=== PATIENT | male | born 1955 | race Caucasian/White ===

== ENCOUNTER 2017-12-16 20:32 | Inpatient (IN) | payer SELFPAY ==
[~2017-12-16] VITALS: Ht 167.6 cm; Wt 77.3 kg
[2017-12-16 21:15] LABS: APPEARANCE CLEAR (CLEAR); BILIRUBIN NEGATIVE (NEGATIVE); COLOR DK YELLOW (YELLOW); GLUCOSE NEGATIVE (NEGATIVE); KETONE NEGATIVE (NEGATIVE); NITRITE NEGATIVE (NEGATIVE); PROTEIN NEGATIVE (NEGATIVE); SPECIFIC GRAVITY 1.025 (1.005-1.020); UROBILINOGEN NORMAL (NORMAL)
[2017-12-16 22:06] LABS: BASOPHILS 0.5 % (0-2); EOSINOPHILS 1.1 % (0-7); HEMATOCRIT 32.5 % (42.0-54.0); HEMOGLOBIN 10.7 g/dL (13.5-17.5); IMMATURE GRANULOCYTES 0.2 % (0-5); MCH 27.9 pg (26.0-34.0); MCHC 32.9 g/dL (31.0-37.0); MCV 84.9 fL (80.0-100.0); MEAN PLATELET VOLUME 9.2 fL (7.4-10.4); MONOCYTES 11.7 % (2-11); NEUTROPHILS 49.5 % (40-80); PLATELET COUNT 326 10x3/uL (130-400); RBC 3.83 10x6/uL (4.20-6.10); RDW 19.6 % (11.5-14.5); WBC 13.3 10x3/uL (4.8-10.8)
[2017-12-16 22:21] LABS: ALBUMIN 2.8 g/dL (3.4-5.0); ALKALINE PHOSPHATASE 100 U/L (46-116); ALT (SGPT) 27 U/L (10-68); BILIRUBIN - TOTAL 1.21 mg/dL (0.2-1.3); CALC OSMOLALITY 280 mosm/kg (275-300); CALCIUM 9.6 mg/dL (8.5-10.1); CARBON DIOXIDE 27.2 mmol/L (21.0-32.0); CHLORIDE - SERUM 106 mmol/L (98-107); CREATININE - SERUM 0.7 mg/dL (0.6-1.3); GLUCOSE 104 mg/dL (74-106); POTASSIUM - SERUM 3.9 mmol/L (3.5-5.1); PROTEIN - SERUM 7.1 g/dL (6.4-8.2); SODIUM 141 mmol/L (136-145); UREA NITROGEN 12 mg/dL (7-18); eGFR NON AFRICAN AMERICAN > 90 mL/min (90-120)
[2017-12-16 22:29] LABS: LIPASE 408 U/L (73-393); PRO BNP 1103 pg/mL (0-125); TROPONIN-I 0.037 ng/mL (0.000-0.060)
[2017-12-16 22:54] LABS: AMYLASE - SERUM 95 U/L (25-115)
[2017-12-17] MEDS ORDERED: KEPPRA500 MG PO (01:09)
[2017-12-17] MEDS ORDERED: ULTRAM50 MG PO (01:10)
[2017-12-17] MEDS ORDERED: PRINIVIL20 MG PO (01:11)
[2017-12-17 02:56] VITALS: BP 119/69; Ht 167.6 cm; Wt 77.3 kg
[2017-12-17 04:52] VITALS: BP 119/69
[2017-12-17 10:28] VITALS: BP 97/54
[2017-12-17 10:53] LABS: BASOPHILS 0.6 % (0-2); EOSINOPHILS 3.3 % (0-7); HEMOGLOBIN 9.9 g/dL (13.5-17.5); IMMATURE GRANULOCYTES 0.1 % (0-5); LYMPHOCYTES 43.3 % (15-50); MCH 27.5 pg (26.0-34.0); MCHC 31.9 g/dL (31.0-37.0); MCV 86.1 fL (80.0-100.0); MEAN PLATELET VOLUME 9.1 fL (7.4-10.4); MONOCYTES 10.7 % (2-11); PLATELET COUNT 307 10x3/uL (130-400); RDW 19.5 % (11.5-14.5); WBC 13.5 10x3/uL (4.8-10.8)
[2017-12-17 11:09] LABS: ALBUMIN 2.4 g/dL (3.4-5.0); ALKALINE PHOSPHATASE 86 U/L (46-116); ALT (SGPT) 24 U/L (10-68); BILIRUBIN - TOTAL 0.95 mg/dL (0.2-1.3); CALC OSMOLALITY 277 mosm/kg (275-300); CALCIUM 8.8 mg/dL (8.5-10.1); CARBON DIOXIDE 23.4 mmol/L (21.0-32.0); CHLORIDE - SERUM 107 mmol/L (98-107); CREATININE - SERUM 0.6 mg/dL (0.6-1.3); GLUCOSE 111 mg/dL (74-106); POTASSIUM - SERUM 3.6 mmol/L (3.5-5.1); PROTEIN - SERUM 6.5 g/dL (6.4-8.2); SODIUM 139 mmol/L (136-145); UREA NITROGEN 10 mg/dL (7-18); eGFR NON AFRICAN AMERICAN > 90 mL/min (90-120)
[2017-12-17 16:17] LABS: AMYLASE - SERUM 74 U/L (25-115); LIPASE 387 U/L (73-393)
== END 2017-12-17 16:14 | disposition left against medical advice (07) | DRG 392 ==
LOC: D.ER 20:32 → D.MS 12-17 00:35
PROVIDERS: Family Medicine
DX: R10.11 Right upper quadrant pain (principal); F17.203 Nicotine dependence unspecified, with withdrawal; R53.83 Other fatigue; R50.9 Fever, unspecified; G40.909 Epilepsy, unspecified, not intractable, without status epilepticus; I10 Essential (primary) hypertension; F32.9 Major depressive disorder, single episode, unspecified; R79.89 Other specified abnormal findings of blood chemistry; F10.20 Alcohol dependence, uncomplicated